=== PATIENT | female | born 1985 | race Caucasian/White ===

== ENCOUNTER → 2017-10-31 15:59 | Outpatient (CLI) | payer MEDICAID, SELFPAY ==
[2017-10-31 20:55] LABS: Chlamydia Trachomatis by PCR Negative (Negative); Neisserai gonorrhoeae by PCR Negative (Negative); Probe Check PASS; Sample Adequacy Control PASS; Specimen Processing Control PASS
[2017-11-03 12:26] LABS: HPV Reflexed? NOT INDICATED
== END ==
PROVIDERS: Visit Provider Obstetrics & Gynecology
DX: Z12.4 Encounter for screening for malignant neoplasm of cervix (principal)
CPT/HCPCS: 87491; 87591; 88175; G0145

== ENCOUNTER → 2017-11-29 16:37 | Outpatient (CLI) | payer MEDICAID, SELFPAY ==
[2017-11-29 20:56] LABS: Chlamydia Trachomatis by PCR Negative (Negative); Neisserai gonorrhoeae by PCR Negative (Negative); Probe Check PASS; Sample Adequacy Control PASS; Specimen Processing Control PASS
== END ==
PROVIDERS: Visit Provider Obstetrics & Gynecology
DX: Z11.3 Encounter for screening for infections with a predominantly sexual mode of transmission (principal)
CPT/HCPCS: 87491; 87591

== ENCOUNTER → 2018-10-01 16:04 | Outpatient (CLI) | payer MEDICAID, SELFPAY ==
[2015-04-23 07:08] VITALS: BMI 46.0
[2018-10-01 18:06] LABS: Chlamydia Trachomatis by PCR Negative (Negative); Neisserai gonorrhoeae by PCR Negative (Negative); Probe Check PASS; Sample Adequacy Control PASS; Specimen Processing Control PASS
== END ==
PROVIDERS: Visit Provider Obstetrics & Gynecology
DX: Z11.3 Encounter for screening for infections with a predominantly sexual mode of transmission (principal)
CPT/HCPCS: 87491; 87591

== ENCOUNTER 2018-10-12 08:59 | Emergency (ER) | payer MEDICAID, SELFPAY ==
[2018-10-12 09:00] VITALS: BP 126/77; PULSE 83; RESP 18; TEMP 36.6; O2SAT 98; BMI 40.7
[2018-10-12 09:10] VITALS: TEMP 36.6
--- NOTE | 2018-10-12 09:32 | ED.VISSUMM ---
- ER Visit Summary Date of Service: 10/12/18 Chief Complaint: Pinkeye left eye History of Present Illness: The patient is a 32 F diagnosed with pinkeye. Off antibiotic drops to her left eye and thinks it is more irritated now. She was glasses no contacts. No visual change. States discharge is clear to yellowish. Crusting over in the morning. Denies any trauma or foreign body. She does not wear contacts. Prior history of pinkeye. Physical Examination: Well-appearing female no acute distress. Vital signs are stable afebrile. HEENT exam left eye is injected and watering. Upper and lower lids are unremarkable and everted show no abnormality. No obvious foreign body or trauma. Pupils are round reactive light. Extra motions are intact. Left eye is mildly injected. There is no orbital periorbital swelling. No preauricular lymphadenopathy. No facial rash or swelling. Exam is consistent with pinkeye. Neck nontender no lymphadenopathy. Lungs clear to auscultation. Heart regular rhythm no murmur. Otherwise exam unremarkable. Test Results: None Emergency Department Course and Treatment: Vision as a viral conjunctivitis. More than likely be sulfa eyedrops are also irritating her eye. Those will be stopped. She was placed on bacitracin ophthalmic ointment. Warm compresses. And follow-up if not improving. Treatment Plan: See above Disposition: Discharge Impression: Viral conjunctivitis Eye irritation secondary to sulfa drops This note was generated with [employer] dictation software. It may contain incorrect words, spelling, and punctuation that were not noted in review of the chart prior to signing ED Disposition - Plan for ED Patient: Referrals: Reggie Orona MD [Primary Care Provider] -
--- NOTE | 2018-10-12 09:35 | ED.DEP ---
ED Disposition - Plan for ED Patient: Disposition: Home or Assisted Living Instructions: CONJUNCTIVITIS, Viral Referrals: Isma Bahena MD [STAFF PHYSICIAN] - 3-5 Days if not improving Additional Instructions: Stop your current eyedrops he may be irritating her eye. Warm compresses several times a day. Eye ointment 3 times a day till gone.
== END 2018-10-12 09:56 | disposition home or self-care (01) ==
PROVIDERS: Emergency Provider Emergency Medicine; Family Provider Family Medicine; PCP Family Medicine
DX: B30.9 Viral conjunctivitis, unspecified (principal); H10.022 Other mucopurulent conjunctivitis, left eye; T37.0X5A Adverse effect of sulfonamides, initial encounter
CPT/HCPCS: 99282

== ENCOUNTER → 2019-04-10 17:08 | Outpatient (CLI) | payer MEDICAID, SELFPAY ==
[2019-04-10 20:06] LABS: Chlamydia Trachomatis by PCR Negative (Negative); Neisserai gonorrhoeae by PCR Negative (Negative); Probe Check PASS; Sample Adequacy Control PASS; Specimen Processing Control PASS
== END ==
PROVIDERS: Visit Provider Obstetrics & Gynecology
DX: Z11.3 Encounter for screening for infections with a predominantly sexual mode of transmission (principal)
CPT/HCPCS: 87491; 87591

== ENCOUNTER → 2019-12-10 | Outpatient (CLI) | payer MEDICAID, SELFPAY ==
[2019-11-27 10:19] VITALS: BMI 40.7
[2019-12-12 03:07] LABS: Chlamydia By Nucleic Acid AMP Negative (Negative)
[2019-12-12 08:27] LABS: Gonococcus By Nucleic Acid AMP Negative (Negative)
== END | disposition home or self-care (01) ==
LOC: LABSPEC 11:51
PROVIDERS: Visit Provider Obstetrics & Gynecology
DX: Z11.3 Encounter for screening for infections with a predominantly sexual mode of transmission (principal)
CPT/HCPCS: 87491; 87591

== ENCOUNTER 2020-05-18 08:27 | Emergency (ER) | payer MEDICAID, SELFPAY ==
[2019-11-27 10:19] VITALS: BMI 40.7
[2020-05-18 08:28] VITALS: BP 176/99; PULSE 87; RESP 14; TEMP 36.4; O2SAT 100; BMI 46.5
--- NOTE | 2020-05-18 08:42 | CT_ITS ---
STUDY: CT BRAIN WITHOUT CONTRAST REASON FOR EXAM: Female, 34 years old. HEADACHE X 1.5 MONTHS, DIZZY,BLURRED VISION RADIATION DOSAGE (If Supplied By Facility): CTDIvol = ( 44.99 ) mGy, DLP = ( 762.36 ) mGycm TECHNIQUE: Transaxial CT imaging of the brain was performed without administration of intravenous contrast material. Individualized dose optimization techniques were used for this CT. COMPARISON: No relevant priors. FINDINGS: Normal soft tissue structures. Normal calvarium. Normal size ventricles and extra-axial spaces for the patient''s age. Normal white matter tracts of the cerebral hemispheres. Normal basal ganglia and thalami. Normal brainstem. Normal cerebellum. There is no intracranial hemorrhage. There are no findings of an acute ischemic infarction. Normal visualized paranasal sinuses. CT/Brain/Head without Contrast IMPRESSION: Normal unenhanced CT scan of the brain. Electronically Signed: Bertram Liang MD at 10:21 EST Tel , Service support ,
--- NOTE | 2020-05-18 08:50 | ED.VIS.GEN ---
History of Present Illness Chief Complaint: Headache Informant: Patient Onset: Days Context: Gradual Onset Timing: Intermittent Current Severity: Moderate Maximum Severity: Moderate Narrative: The patient is a 34-year-old female with no significant medical history that presents to the emergency department with headache. Patient states is been going on for at least the prior month and a half. She states that they are intermittent, but rather consistent. She states she had a daily headache. She describes it as a pressure in her head and feels like throbbing behind her eyes. She states with the headache, she will get nauseated. She denies photophobia. She denies any vomiting. She denies any trauma. She is had no weakness or visual change. Patient is not on any daily medications. She states that she has taken aspirin, ibuprofen, Tylenol with little improvement. Prior similar symptoms: No Recent Illness/Hospitalization: No Past Medical History - Allergies and Home Meds Allergies/Adverse Reactions: Allergies latex Allergy (Verified 05/18/20 08:28) Rash Primary Care Physician: Chantal Campos MD [Primary Care Provider] - Prior records reviewed: Yes Past Medical History: None Surgical History: noncontributory Smoking Status: Never smoker Review of Systems General: Denies: Chills, Fever, Sweats Eyes: Denies: Visual changes - bilaterally, Diplopia ENT: Denies: Rhinorrhea, Sore throat Cardiovascular: Denies: Chest pain, Palpitations Respiratory: Denies: Dyspnea, Cough, Dyspnea on exertion Gastrointestinal: Reports: Vomiting. Denies: Abdominal pain, Nausea, Diarrhea, Melena, Hematochezia Genitourinary: Denies: Dysuria, Hematuria, Frequency Musculoskeletal: Denies: Back pain, Extremity Pain Skin: Denies: Rash, Wounds Neurological: Reports: Headache. Denies: Weakness, Numbness Physical Exam Vital Signs/Narrative: Vital Signs Temp Pulse Resp BP Pulse Ox 05/18/20 08:28 97.5 F L 87 14 176/99 H 100 Inital Vital Signs reviewed: Yes General: Well nourished, Well developed, No Acute Distress Head: Normocephalic, Atraumatic Eyes: Perrl, EOMI ENT: Moist mucous membranes, No rhinorrhea Neck: Supple, Nontender Cardiovascular: Regular rate, Regular rhythm, No murmurs Respiratory: No distress, CTA bilaterally, Chest nontender Abdomen: Soft, Nontender, Nondistended, Normal bowel sounds Back: Nontender, Normal Inspection Extremities: Nontender, No edema Skin: Normal color, No rash Neurological: Alert, Oriented x3, Cranial nerves II-XII grossly intact, Normal Strength, Normal Sensation Psychological: Normal affect, Normal Mood Diagnostic/Tx/Re-eval Clinical Impression(s) from Imaging Studies Brain CT 05/18/20 08:42 IMPRESSION: Normal unenhanced CT scan of the brain. Electronically Signed: Bertram Liang MD at 10:21 EST Tel , Service support , Abnormal Lab Results 05/18/20 05/18/20 05/18/20 08:50 08:50 08:50 WBC 9.7 RBC 4.37 Hgb 13.0 Hct 40.4 MCV 92.4 MCH 29.7 MCHC 32.2 RDW Std Deviation 43.6 RDW Coeff of Marcus 13.0 Plt Count 205 MPV 9.7 Immature Gran % (Auto) 0.400 Neut % (Auto) 65.3 Lymph % (Auto) 28.5 [place] % (Auto) 4.5 Eos % (Auto) 1.0 Baso % (Auto) 0.3 Absolute Neuts (auto) 6.3 Absolute Lymphs (auto) 2.77 Nucleated RBC % 0 Sodium 138 Potassium 3.9 Chloride 106 Carbon Dioxide 27.0 Anion Gap 5 BUN 15 Creatinine 0.81 Estim Creat Clear Calc 80.95 Est GFR (MDRD) Af Amer 104 Est GFR (MDRD) Non-Af 86 BUN/Creatinine Ratio 18.6 Glucose 142 H Calcium 9.0 Total Bilirubin 0.20 AST 11 L ALT 29 Alkaline Phosphatase 82 Total Protein 7.5 Albumin 3.4 Globulin 4.1 Albumin/Globulin Ratio 0.8 L Urine Test Negative - Medical Decision Making The patient presents with persistent headache. She states that there is been throbbing in her eyes. On arrival, she was hypertensive. It was hard to tell if this was the cause of her headache versus just secondary from the pain itself. Patient was given fluids and Zofran. Without intervention, her repeat blood pressure normalized. She is feeling improved. I did obtain noncontrast head CT. This was unremarkable for acute process. Labs were also unremarkable. The patient is not meningitic or encephalopathic. I do feel there are components of tension headache. I do not feel this is migraine. I am going to treat the patient with Fioricet and Zofran. I will have her follow-up with her primary care for reevaluation. Impression 1. Headache ED Disposition - Plan for ED Patient: Instructions: ED Headache, Tension Prescriptions: Acetaminophen/Butalbital/Caffe [Fioricet] 1 tab PO Q4H PRN PRN #20 tab PRN Reason: Headache Prescription Printed Ondansetron [Zofran Odt] 4 mg PO Q8H PRN PRN #10 tab PRN Reason: Nausea Prescription Printed Referrals: Chantal Campos MD [Primary Care Provider] -
[2020-05-18] MEDS: Ondansetron 4 MG/2 ML Vial IV (08:55)
[2020-05-18 08:58] LABS: Internal QC Validated? YES +Cl - CLEAR BKGD
[2020-05-18 08:59] LABS: Absolute Lymphocyte Count 2.77 X10^3/uL (0.83-4.51); Absolute Neutrophil Count 6.3 X10^3/uL (2.0-7.7); Basophil# 0.03 X10^3/uL; Basophil% 0.3 % (0-1); Hematocrit 40.4 % (37-47); Lymphocyte # 2.77 X10^3/ul (4.0); Lymphocyte % 28.5 % (19-41); Mean Corp Hgb Conc 32.2 g/dL (32-36); Mean Corpuscular Hgb 29.7 pg (27.0-32.0); Mean Corpuscular Volume 92.4 fL (81-99); Mean Platelet Vol. 9.7 fl (6.2-12.0); Monocyte# 0.44 X10^3/uL; Monocyte% 4.5 % (0-10); NRBC Flagged by Analyzer 0 % (0-5); Neutrophil # 6.34 X10^3/uL (2.7-7.7); Neutrophil % 65.3 % (47-70); Platelet Count 205 K/mm3 (150-450); Pregnancy, Urine Negative Negative; RBC Distribution Width SD 43.6 fl (35.1-43.9); Red Blood Count 4.37 M/mm3 (4.2-5.4); White Blood Count 9.7 K/mm3 (4.4-11.0)
[2020-05-18 09:14] LABS: ALB/GLOB Ratio 0.8 RATIO (0.9-2.4); AST(SGOT) 11 U/L (15-37); Alanine Aminotransfer ALT/SGPT 29 U/L (13-56); Albumin, Serum 3.4 g/dL (3.2-5.0); Alkaline Phosphatase 82 U/L (45-117); Anion Gap 5 (5-15); BUN 15 mg/dL (7-18); BUN/Creat Ratio 18.6 RATIO (10-20); Chloride 106 mmol/L (98-107); Creatinine, Serum 0.81 mg/dL (0.55-1.02); EST Glomerular Filtration Rate 86 mL/min (>60); Est Glom Filt Rate - Afr Amer 104 mL/min (>60); Estimated Creatinine Clearance 80.95 ml/min; Globulin 4.1 g/dL (2.2-4.2); Glucose 142 mg/dL (74-106); Potassium 3.9 mmol/L (3.5-5.1); Protein, Total 7.5 g/dL (6.4-8.2); Sodium Level 138 mmol/L (136-145)
[2020-05-18 10:20] VITALS: BP 127/70; PULSE 70; O2SAT 98
[2020-05-18 10:57] VITALS: BP 134/69; PULSE 71; RESP 15; O2SAT 98
== END 2020-05-18 10:57 | disposition home or self-care (01) ==
LOC: ED 09:47
PROVIDERS: Emergency Provider Emergency Medicine; PCP Internal Medicine
DX: R51.9 Headache, unspecified (principal)
CPT/HCPCS: 70450; 80053; 81025; 85025; 96374; 99283; J7030; J2405

== ENCOUNTER 2020-07-22 19:30 | Emergency (ER) | payer MEDICAID, SELFPAY ==
[2020-07-22 19:30] VITALS: BP 147/85; PULSE 86; RESP 18; TEMP 36.8; O2SAT 97; BMI 46.8
[2020-07-22 20:17] LABS: Hematocrit 39.2 % (37-47); Hemoglobin 12.7 g/dL (12.0-15.0)
[2020-07-22 20:29] LABS: Internal QC Validated? YES +Cl - CLEAR BKGD; Pregnancy, Serum, hCG Quali. NEGATIVE Negative
--- NOTE | 2020-07-22 21:29 | US_ITS ---
STUDY: ULTRASOUND TRANSVAGINAL CLINICAL: Female, 34 years old. Vaginal bleeding x2.5 weeks and severe cramping pa TECHNIQUE: Transvaginal real-time exam with grayscale image documentation. COMPARISON: Prior pelvic ultrasound of 05/13/2014 FINDINGS: The uterus is midline and anteverted and measures 7.2 x 5.2 x 3.9 cm. Normal endometrial thickness measuring 3 mm. There are no endometrial masses, and there is no fluid in the endometrial cavity. Normal uterine cervix. Normal right ovary, measuring 2.6 x 1.6 x 1.6 cm. There are multiple follicles without a dominant cyst. Normal left ovary, measuring 2.8 x 2.1 x 2.1 cm. There are multiple follicles without a dominant cyst. There is no free fluid in the pelvis. Polycystic ovary disease: No. US/Transvaginal Non- IMPRESSION: Normal pelvis. Electronically Signed: Brandy Funez MD at 22:16 EDT , Service support ,
--- NOTE | 2020-07-22 21:31 | ED.VIS.FEGU ---
HPI HPI - Female History of Present Illness Chief Complaint: Vag Bleeding Pain Pain: Pelvic Pain Onset: Weeks (2.5 weeks) Context: Sudden Onset Timing: Intermittent and Waxes and wanes Quality: Positive for Cramping and Aching Location: - (Above the pubic symphysis/vaginal area) Current Severity: Mild Maximum Severity: Severe Worsened by: - (Nothing specific) Relieved by: - (Nothing) Bleeding Issue: Positive for Vaginal bleeding and Passing clots Onset: Weeks (Onset 2.5 weeks ago) Context: Sudden Onset Timing: Intermittent Current Severity: Heavy Severity: Severe Maximum Severity: Heavy Vaginal Discharge Severity: - (No vaginal discharge) Associated Symptoms Associated Symptoms: Positive for Missed Period; Negative for Dysuria, Frequency, Urgency and Hematuria Test: Negative Sexually: Active and Single Partner Control: No control P: 3 Ab: 0 Narrative Narrative: Patient is a 34-year-old woman who presents with vaginal bleeding started 2.5 weeks ago. She has had intermittent bleeding and pain for 2.5 weeks. Last normal menstrual period was May 25. She did not start bleeding until July 04. She does not recall how many pads she has used today or per day. She states the pads are saturated and she is passing small to large clots. She does report prior history of ovarian cyst. She denies history of endometriosis or ectopic . 5 years ago she was diagnosed with chlamydia. Prior similar symptoms: No Recent Illness/Hospitalization: No PFSH PFSH Medical History (Updated 07/22/20 @ 22:[address] Matthew Vee MD) No significant past medical history Home Medications doxycycline monohydrate 100 mg PO BID #14 capsule 07/22/20 [Rx Last Taken Unknown] methylergonovine [Methergine] 0.2 mg PO .qid 4 Days #15 tab 07/22/20 [Rx Last Taken Unknown] multivit [id number] 1-dha 1 tab PO/SL DAILY 07/22/20 [History Last Taken Unknown] Allergy/AdvReac Type Severity Reaction Status Date / Time latex Allergy Rash Verified 07/22/20 19:33 Social History (Updated 07/22/20 @ 21:[address] Matthew Vee MD) household members: significant other, family and children current occupational exposures/hazards: No history of recent travel: No sexually active: Yes do you think of yourself as: straight/heterosexual current gender identity: female Smoking Status: Never smoker alcohol intake: current alcohol intake frequency: holidays/special occasions only substance use type: does not use ROS ROS ED Constitutional Constitutional ED: Reports systems reviewed and no addt'l complaints, except as documented; Denies chills, fever(s), subjective or sweats Eyes Eyes: Reports systems reviewed and no addt'l complaints, except as documented; Denies blurry vision or change in vision ENT ENT ED: Denies change in voice, dental pain, dry mouth, dysphagia, ear pain, rhinorrhea or sore throat Cardiovascular Cardiovascular: Reports abdominal bloating; Denies abdominal edema, abdominal pain, racing heartbeat or syncope Respiratory/Chest Respiratory/Chest: Denies cough, dyspnea or dyspnea on exertion Gastrointestinal Gastrointestinal: Reports abdominal pain and nausea; Denies constipation, diarrhea or vomiting Genitourinary Genitourinary ED: Denies dysuria, hematuria or urinary frequency Musculoskeletal Musculoskeletal: Denies arthralgias, myalgias or neck pain Integumentary Denies rash Neurologic Neurologic: Denies headache(s) or weakness Psychiatric Psychiatric: Denies anxiety or depression Endocrine Endocrinology: Denies polydipsia or polyuria Hematologic/Lymphatic Hematologic/Lymphatic: Denies easy bleeding or easy bruising EXAM Physical Exam Const Vital Signs: 07/22/20 19:30 07/22/20 22:06 Temperature 98.3 F Temperature Source Temporal Pulse Rate 86 Respiratory Rate 18 16 Blood Pressure 147/85 H Blood Pressure Mean 105 Pulse Ox 97 Oxygen Delivery Method Room Air Positive well nourished, well developed and obese General Appearance ED: well developed and other Mild discomfort Nutritional Appearance: obese HEENT Reports moist mucous membranes Negative for trauma or tenderness Eyes PERRL and EOMs intact bilaterally General Eye ED: Negative for pale conjunctiva or scleral icterus Chest Wall inspection of chest normal Resp normal respiratory effort and clear to auscultation bilaterally Cardio regular rate, regular rhythm, S1 normal heart sound and no murmurs GI normal to inspection, nondistended, normoactive bowel sounds, soft to palpation and non-distended; Negative for non-tender GI Narrative: Suprapubic region Auscultation: hypoactive bowel sounds Palpation: tender; Negative for hepatomegaly or splenomegaly no CVA tenderness, external exam normal, appearance of the vagina normal and no adnexal masses; Negative for appearance of the cervix normal, bimanual exam normal or adnexae non-tender Narrative: Patient is actively bleeding. There is blood noted from the os. The os is elliptical in configuration. Patient has significant tenderness on bimanual exam and unable to palpate uterus or ovaries because of discomfort and body habitus. External Female Exam: normal appearance of the urethra; Negative for abnormal introitus or inguinal lymphadenopathy Speculum Exam - Vagina: vaginal bleeding small/minimal Speculum Exam - Cervix: nulliparous Bimanual Exam - Vag & Uterus: cervical motion tenderness Back/Spine no CVA tenderness Extremity normal to inspection and full ROM Neuro oriented x3 and CN's II-XII intact bilaterally Sensorium / Orientation: alert Psych mental status grossly normal Skin no rashes or lesions noted MDM MDM MDM Narrative Medical decision making narrative: With abnormal menstrual. Vaginal bleeding and cramping pain need to evaluate for and if ectopic versus other causes. Will obtain H&H since she has been bleeding for 2.5 weeks. Patient's ultrasound was unremarkable. Case was discussed with Dr. Macias who is on-call for her public policy analyst. Plan is Methergine 0.2 mg p.o. every 6 hours for a total of 16 doses and because of her tenderness he requested treatment with Rocephin and doxycycline. Urine was sent for GC and chlamydia. Lab Data Labs: Laboratory Results - last 24 hr 07/22/20 07/22/20 07/22/20 20:00 20:00 20:00 Hgb 12.7 Hct 39.2 Serum , Qual NEGATIVE Blood Type O POSITIVE Radiography Diagnostic Testing: Radiology Impression Transvaginal US 07/22/20 21:29 IMPRESSION: Normal pelvis. Electronically Signed: Brandy Funez MD at 22:16 EDT , Service support , Discharge Plan Triage Chief Complaint: Vag Bleeding ED Provider: Matthew Vee Dx/Rx/DC Orders Clinical Impression: Abnormal uterine and vaginal bleeding, unspecified, Menorrhagia with irregular cycle Prescriptions: New doxycycline monohydrate 100 mg capsule 100 mg PO BID Qty: 14 RF: 0 methylergonovine [Methergine] 0.2 mg tablet 0.2 mg PO .qid 4 Days Qty: 15 RF: 0 No Action multivit [id number] 1-dha 1 tab PO/SL DAILY RF: 0 Primary Care Provider: Chantal Campos Referrals: Chantal Campos MD [Primary Care Provider] - Paris Quintero MD [STAFF PHYSICIAN] - 5-7 Days
[2020-07-22 22:06] VITALS: RESP 16
[2020-07-22] MEDS: Doxycycline 100 MG CAPSULE PO (22:48)
--- NOTE | 2020-07-22 22:51 | ED.DCSUM_ITS ---
HPI HPI - Female History of Present Illness Chief Complaint: Vag Bleeding Informant: Patient [facility] Medical History (Updated 07/22/20 @ 22:[address] Matthew Vee MD) No significant past medical history Home Medications doxycycline monohydrate 100 mg PO BID #14 capsule 07/22/20 [Rx Last Taken Unknown] methylergonovine [Methergine] 0.2 mg PO .qid 4 Days #15 tab 07/22/20 [Rx Last Taken Unknown] multivit [id number] 1-dha 1 tab PO/SL DAILY 07/22/20 [History Last Taken Unknown] Allergy/AdvReac Type Severity Reaction Status Date / Time latex Allergy Rash Verified 07/22/20 19:33 Social History (Updated 07/22/20 @ 21:[address] Matthew Vee MD) household members: significant other, family and children current occupational exposures/hazards: No history of recent travel: No sexually active: Yes do you think of yourself as: straight/heterosexual current gender identity: female Smoking Status: Never smoker alcohol intake: current alcohol intake frequency: holidays/special occasions only substance use type: does not use EXAM Physical Exam Const Vital Signs: 07/22/20 19:30 07/22/20 22:06 Temperature 98.3 F Temperature Source Temporal Pulse Rate 86 Respiratory Rate 18 16 Blood Pressure 147/85 H Blood Pressure Mean 105 Pulse Ox 97 Oxygen Delivery Method Room Air [facility] Lab Data Labs: Laboratory Results - last 24 hr 07/22/20 07/22/20 07/22/20 20:00 20:00 20:00 Hgb 12.7 Hct 39.2 Serum , Qual NEGATIVE Blood Type O POSITIVE Radiography Diagnostic Testing: Radiology Impression Transvaginal US 07/22/20 21:29 IMPRESSION: Normal pelvis. Electronically Signed: Brandy Funez MD at 22:16 EDT , Service support , Discharge Plan Triage Chief Complaint: Vag Bleeding ED Provider: Matthew Vee Dx/Rx/DC Orders Clinical Impression: Abnormal uterine and vaginal bleeding, unspecified, Menorrhagia with irregular cycle Prescriptions: New doxycycline monohydrate 100 mg capsule 100 mg PO BID Qty: 14 RF: 0 methylergonovine [Methergine] 0.2 mg tablet 0.2 mg PO .qid 4 Days Qty: 15 RF: 0 No Action multivit [id number] 1-dha 1 tab PO/SL DAILY RF: 0 Primary Care Provider: Chantal Campos Referrals: Chantal Campos MD [Primary Care Provider] - Paris Quintero MD [STAFF PHYSICIAN] - 5-7 Days
[2020-07-22] MEDS: Ceftriaxone 500 MG Vial 250 MG IM (23:12)
[2020-07-22 23:37] VITALS: BP 142/60; PULSE 79; RESP 18; O2SAT 98
[2020-07-23 01:09] LABS: Chlamydia Trachomatis by PCR Negative (Negative); Neisserai gonorrhoeae by PCR Negative (Negative); Probe Check PASS; Sample Adequacy Control PASS; Specimen Processing Control PASS
== END 2020-07-22 23:38 | disposition home or self-care (01) ==
LOC: ED 20:39
PROVIDERS: Emergency Provider Emergency Medicine; PCP Internal Medicine
DX: N92.0 Excessive and frequent menstruation with regular cycle (principal); E66.9 Obesity, unspecified
CPT/HCPCS: 76830; 84703; 85014; 85018; 86900; 86901; 87491; 87591; 96372; 99283; J7030; A4216

== ENCOUNTER → 2020-08-07 | Outpatient (CLI) | payer MEDICAID, SELFPAY ==
[2020-07-22 19:30] VITALS: BMI 46.8
[2020-08-11 18:54] LABS: HPV APTIMA, High Risk Negative (Negative)
== END | disposition home or self-care (01) ==
LOC: LABSPEC 14:06
PROVIDERS: PCP Internal Medicine; Visit Provider Obstetrics & Gynecology
DX: Z12.4 Encounter for screening for malignant neoplasm of cervix (principal)
CPT/HCPCS: 87624; 88175; G0145

== ENCOUNTER 2021-02-12 08:20 | Emergency (ER) | payer MEDICAID, SELFPAY ==
[2021-02-12 08:24] VITALS: BP 128/90; PULSE 83; RESP 17; TEMP 36.1; O2SAT 97; BMI 48.5
--- NOTE | 2021-02-12 09:04 | EX.ED.DYSGE1 ---
HPI History of Present Illness Chief Complaint: Cold Sx Informant: patient Onset/Context/Timing Onset: Days (5) Context: Gradual Onset Timing: Continuous Quality: Malaised/fatigued Location: All over Current Severity: Moderate Worsened by: Nothing Relieved by: Nothing Associated Symptoms Associated Symptoms ED: cough Narrative Narrative: Patient presents with about 5 days of gradual onset cough, runny nose and congestion, myalgias, malaise/fatigue, some diarrhea, and yesterday she started to partially lose her sense of taste although she can smell okay. She denies any dyspnea or fevers. She was not vaccinated against Covid but is concerned she may have it. She was seen on day one of the illness and was started on amoxicillin, she does not know exactly why, there were no tests performed. She states 3 or 4 days into the antibiotic she started developing vaginal discomfort, swelling, redness, itching, with a white discharge. She fears she may have a yeast infection so she just started Monistat. Her urine is normal looking, but it hurts to urinate past the affected area. Denies any abdominal pain, nausea, vomiting. States multiple persons in the household have been ill with URIs similar timeframe, no one has been tested for Covid. [facility] Medical History Alcohol use No significant past medical history Wears glasses Home Medications fluconazole [Diflucan] 150 mg PO DAILY #1 tab 02/12/21 [Rx Last Taken Unknown] Allergy/AdvReac Type Severity Reaction Status Date / Time latex Allergy Rash Verified 02/12/21 08:21 Surgical History (Updated 09/17/20 @ 09:55 by Blanca Francisco) History of hysteroscopy Hx of tonsillectomy Social History household members: significant other, family and children current occupational exposures/hazards: No history of recent travel: No sexually active: Yes Smoking Status: Never smoker alcohol intake: current alcohol intake frequency: holidays/special occasions only substance use type: does not use ROS ROS ED Constitutional Constitutional ED: Reports body ache(s), fatigue, headache(s) and malaise; Denies chills or fever(s) Eyes Eyes: Denies change in vision or diplopia ENT ENT ED: Reports nasal congestion; Denies rhinorrhea or sore throat Cardiovascular Cardiovascular: Denies chest pain or palpitations Respiratory/Chest Respiratory/Chest: Reports cough; Denies dyspnea or dyspnea on exertion Gastrointestinal Gastrointestinal: Reports diarrhea; Denies abdominal pain, nausea or vomiting Genitourinary Genitourinary ED: Denies dysuria or hematuria Musculoskeletal Musculoskeletal: Denies back pain or neck pain Integumentary Denies abscess or rash Neurologic Neurologic: Reports headache(s); Denies paresthesias or weakness Psychiatric Psychiatric: Denies anxiety or suicidal thoughts EXAM Physical Exam Const Vital Signs: 02/12/21 08:24 02/12/21 08:52 Temperature 96.9 F L Temperature Source Temporal Pulse Rate 83 Respiratory Rate 17 Respiratory Effort Normal Non-Labored Respiratory Pattern Normal Blood Pressure 128/90 H Blood Pressure Mean 102 Pulse Ox 97 Oxygen Delivery Method Room Air Positive well nourished, well developed and obese Constitutional Narrative: Well-appearing, no distress General Appearance ED: well developed and NAD Nutritional Appearance: obese HEENT Reports moist mucous membranes normocephalic and atraumatic Eyes PERRL and EOMs intact bilaterally Neck full ROM and supple Resp normal respiratory effort and clear to auscultation bilaterally Cardio regular rate, regular rhythm and no murmurs Rate: Negative for tachycardic GI non-tender and non-distended Auscultation: normoactive bowel sounds Palpation: soft Back/Spine no CVA tenderness General Back: other FROM Extremity normal to inspection and no calf tenderness General Extremety ED: Negative for edema, pulses abnormal or tenderness General Extremity: Negative for edema or pulses abnormal Neuro oriented x3, CN's II-XII intact bilaterally and no sensory deficits noted Sensorium / Orientation: awake and alert Motor Exam: strength 5/5 throughout Skin no rashes or lesions noted and no wounds MDM MDM MDM Narrative Medical decision making narrative: Covid test is positive. Oxygen saturations are excellent. She is clinically and hemodynamically stable. She does not meet any criteria for monoclonal antibody infusion or other treatments at this time, recommend supportive care and checking her pulse ox at home. I also recommend discontinuing the amoxicillin for which there is no indication right now, and she was given a prescription for a Diflucan tablet. Lab Data Attestation: I reviewed the patient's lab results. Discharge Plan Triage Chief Complaint: Cold Sx ED Provider: Chicho Vaughn Dx/Rx/DC Orders Clinical Impression: COVID-19, Vaginal candidiasis Instructions: Coronavirus Disease 2019 (COVID-19): Caring for Yourself or Others, ED [facility] Prescriptions: New fluconazole [Diflucan] 150 mg tablet 150 mg PO DAILY Qty: 1 RF: 0 Discontinued amoxicillin 500 mg Tablet 500 mg PO BID RF: 0 Primary Care Provider: Chantal Campos Referrals: Chantal Campos MD [Primary Care Provider] - As Needed Activity Restrictions/Additional Instructions: Try to get a home portable pulse oximeter and closely watch your oxygen levels periodically. If you stay below 90% for more than a minute or so, and/or you are feeling like your breathing is getting worse, return to the emergency department for further evaluation. Disposition Disposition: Home, Self Care
[2021-02-12 10:18] VITALS: BP 138/74; PULSE 62; RESP 15; O2SAT 96
== END 2021-02-12 10:18 | disposition home or self-care (01) ==
PROVIDERS: Emergency Provider Emergency Medicine; PCP Internal Medicine
DX: U07.1 COVID-19 (principal); B37.3 Candidiasis of vulva and vagina; E66.9 Obesity, unspecified
CPT/HCPCS: 87426; 99282

== ENCOUNTER → 2021-08-03 | Outpatient (CLI) | payer MEDICAID, SELFPAY | END | disposition home or self-care (01) | PROVIDERS: PCP Internal Medicine; Visit Provider Obstetrics & Gynecology | DX: Z11.3 Encounter for screening for infections with a predominantly sexual mode of transmission (principal) ==

== ENCOUNTER 2021-09-17 05:53 | Day surgery (SDC) | payer MEDICAID, SELFPAY ==
[2021-09-14 10:58] LABS: Hematocrit 37.9 % (37-47); Hemoglobin 12.4 g/dL (12.0-15.0); Mean Corp Hgb Conc 32.7 g/dL (32-36); Mean Corpuscular Hgb 29.4 pg (27.0-32.0); Mean Corpuscular Volume 89.8 fL (81-99); Mean Platelet Vol. 9.4 fl (6.2-12.0); Platelet Count 236 K/mm3 (150-450); RBC Distribution Width CV 12.8 % (11.6-14.6); Red Blood Count 4.22 M/mm3 (4.2-5.4); White Blood Count 8.3 K/mm3 (4.4-11.0)
[2021-09-14 11:09] LABS: International Normalized Ratio 0.9; Prothrombin Time (Protime)PT. 11.6 SECONDS (11.7-14.9)
[2021-09-14 11:11] LABS: Partial Thromboplast Time 25.9 Seconds (24.1-36.2)
[2021-09-15 08:59] LABS: AST(SGOT) 8 U/L (15-37); Alanine Aminotransfer ALT/SGPT 26 U/L (13-56); Albumin, Serum 3.4 g/dL (3.2-5.0); Alkaline Phosphatase 81 U/L (45-117); Bilirubin, Direct 0.07 mg/dL (0.00-0.30); Globulin 3.5 g/dL (2.2-4.2); Protein, Total 6.9 g/dL (6.4-8.2)
[2021-09-17] VITALS (7 sets, daily range): BP systolic 109–133; BP diastolic 64–73; PULSE 61–88; RESP 16; TEMP 36.2–36.7; O2SAT 95–98; BMI 46.8
[2021-09-17 06:29] LABS: Internal QC Validated? YES +Cl - CLEAR BKGD; Pregnancy, Urine Negative Negative
[2021-09-17] MEDS: Lactated Ringers 1,000 ML 125 ML IV (06:32)
--- NOTE | 2021-09-17 07:30 | FALS_PTH ---
PATIENT: ERICA ESTEBAN [place] [facility] [place][id number] AGE/SX: 35/F ROOM: RE09/17/[address]: Dr. Paris Quigley MD : 1985 BED: DIS: 09/17/2021 SPEC #: [id number] RECD: 09/17/21 12:44 STATUS: CHEY REQ #: [id number] NATASHA: 09/17/21 07:[address]: Paris Quintero DEPT: SURGICAL PATHOLOGY RECD BY: Hoda Calloway ENTERED: 09/17/21 12:54 SP TYPE: FALL TUBES OTHR DR: Dr. Chantal Campos MD Tissues: Fallopian tube Procedures: Surgery Specimen Level II HEADER OPERATION: Laparoscopic salpingectomy PRE-OP DIAGNOSIS: Sterilization TISSUE SUBMITTED: Bilateral fallopian tubes MICROSCOPIC DIAGNOSIS Bilateral fallopian tubes, salpingectomy: Bilateral fallopian tubes, no pathologic diagnosis. Paratubal cysts. SJ:[email or web address] 09/20/2021 MICROSCOPIC DESCRIPTION Slides are reviewed. GROSS DESCRIPTION Received in fixative is one container labeled with the patient's name and designated bilateral fallopian tubes. The specimen consists of bilateral fallopian tubes including fimbrial ends measuring 6 cm in length and 0.6 cm in diameter and 5 cm in length and 0.5 cm in diameter. One of the fallopian tube shows three paratubal cysts measuring 0.5 to 0.7 cm in greatest dimension. The fallopian tubes are not identified as right or left. Sections reveal unremarkable cut surfaces. Mental Health Coordinator sections are submitted in two cassettes as follows: 1 - one fallopian tube, 2 - second fallopian tube and paratubal cysts. / NIKKI:divya 09/17/2021 TC:4 CPT: 37448 x2
--- NOTE | 2021-09-17 08:07 | PCM.HP.BLA ---
History and Physical Date of Admission: 09/17/21 Surgical History and Physical Date: 09/14/2021 Name: ERICA ESTEBAN Age: 35 Date of : 1985 Erica Esteban, a 35 year old female 3 0 2 0 3, presents for Laparoscopic bilateral salpingectomy on September 17, 2021 at [facility]. MEDICATIONS HISTORY: Patient is also takin. No Meds ALLERGIES: NKDA, Latex and Cutaneous hypersensitivity (allergic skin response) Infections - Chlamydia, 2012 and 2014 Illnesses - none Accidents - no injuries of consequence Hospitalizations - Childbirth Review of Systems: GENERAL - Denies fever, or chills SKIN - Denies skin changes EYES - Denies visual changes EARS - Denies difficulty hearing NOSE - Denies nasal congestion or bleeding MOUTH - Denies sore throat or difficulty swallowing NECK - Denies pain or swelling RESPIRATORY - Denies shortness of breath or wheezing CARDIOVASCULAR - Denies palpitations or chest pain GASTROINTESTINAL - Denies nausea, vomiting, diarrhea, constipation GENITOURINARY - Denies dysuria, frequency of urination, incontinence of urine MUSCULOSKELETAL - Denies joint or muscle pain NEUROLOGICAL - Denies localized numbness or weakness PSYCHIATRIC - Denies depression or anxiety ENDOCRINE - Denies heat or cold intolerance, weight loss or gain HEMATO-IMMUNOLOGIC - Denies excesive bleeding with cuts SOCIAL HISTORY: Alcohol Use - denies drinking Smoking - prior social smoker a long time ago Diet - no special diet Lifestyle - moderate stress lifestyle Exercise - minimal Seat Belt Use - always Employer - [employer] 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 Maternal Grandmother: Ovarian cancer. Maternal Grandfather: DM II and Heart Disease. MENSTRUAL HISTORY: LMP Known?- ApproximateAmount/Duration - 7 days, Regularity - Regular, Frequency - monthly days, LMP - 07/26/21, Age Onset Menarche - 10 PAST PREGNANCIES: Total Pregnancies - 5; Full Term Pregnancies - 3; Premature - 0; Abortions, Induced - 1; Abortions, Spontaneous - 1; Ectopics - 0; Multiple Births - 0; Living Children - 3 SURGICAL HISTORY: 1. 05/13/2014 suction D and C ; Blanca Palafox M.D. - 2. 03/27/1997 T and A ; - 3. 03/18/2014 EAB ; - 8 wk twins PHYSICAL EXAM BP- 124/86 R forearm, sitting, regular cuff Weight- 272.65142 lbs Height- 63.00 inch BMI:[id number] CONSTITUTIONAL - NAD, well nourished, and well developed SKIN - No rash, lesions, or ulcers HEENT - Normocephalic, PERRLA, EOMI LUNGS - CTA x2 without wheezes, crackles or rales CARDIAC - normal heart sounds and physiologic rhythm ABDOMEN - Without hepatosplenomegaly, distention, masses, rebound, or guarding; normal bowel sounds; no hernias EXTREMITIES - No edema or calf tenderness NEUROLOGICAL - normal gait, normal balance, normal motor PSYCHIATRIC - A and O to time, place, person, mood and affect External Genitial Vagina - non-tender without lesions Urethra/Urethral Meatus - non-tender Bladder - non-tender Vagina - vaginal adams are pink and moist without loss of rugae and no evidence of atropy Cervix - without cervical motion tenderness and has normal size and features without evident lesions Uterus - 5-6 cm in size, mobile and nontender Adnexa - clear without massess or tenderness Pap - GC/Chlamydia cultures done ASSESSMENT/PLAN: 1. Encounter for sterilization Plan for laparoscopic bilateral salpingectomy Procedural r/b/i/a reviewed Preop instructions reviewed and anticipated hospital course, recovery discussed Preop labs today Consents signed Assessment & Plan Assessment/Plan (1) Encounter for sterilization: PLAN: Plan No interval change in health. Patient and family given opportunity to ask questions and questions answered to their satisfaction. Proceed as planned with laparoscopic bilateral salpingectomy.
[2021-09-17] MEDS: Bupivacaine Mpf 0.5% 30 ML VIAL (09:15)
--- NOTE | 2021-09-17 09:15 | DCINST_ITS ---
Discharge Instructions Diet Discharge Diet: No restrictions Activity Discharge Activity: Return to Normal Activity and May Shower May resume sexual activity in: - (2-4 weeks) Lifting Restrictions: 10 lb Dressing / Incision Call your doctor if your incision/area has: Continuous Slow Oozing, Sudden Increased Bleeding, Increased Pain/ Swelling, Increased Redness, Foul Smelling Discharge and Swelling at the incision site Call your doctor if you observe: Fever of 101 or Higher, Inability to urinate, Inability to have a bowel movement, Shortness of breath, Chest pain, Calf discomfort and Uncontrolled pain Remove Dressing in: 2 days Cleanse incision/area with: Soap & Water Follow Up Care Please Follow Up With: Paris Quintero MD When: 2-4 weeks Test Results: Test results from this visit will be discussed in further detail at your follow- up appointment, if applicable. Discharge Plan Admission Primary Reason for Your Visit: Tube removal (Bilateral salpingectomy) Attending Provider: Paris Quintero Primary Care Provider: Chantal Campos Discharge Orders/Prescriptions Prescriptions: No Action NK Referrals / Follow Up: Chantal Campos MD [Primary Care Provider] - Disposition Disposition (needs filled in before D/C Order can be placed): Home, Self Care
--- NOTE | 2021-09-17 09:19 | OP.PCM_ITS ---
Report of Operation Date of Procedure: 09/17/21 Pre-Operative Diagnosis: 1. Multiparity 2. Sterilization request Post-Operative Diagnosis: 1. Multiparity 2. Sterilization request Surgery/Procedure Performed:: Laparoscopic bilateral salpingectomy Surgeon: Paris Quintero orthodontic technician assistant: Lizbet Douglas Type of Anesthesia: General and Local Anesthesiologist: Brent Zheng Specimen's removed: bilateral tubes Drains: Urine output 50cc Estimated Blood Loss (mL): 10 Fluids Replaced: 800 Description of Procedure: Indications: 35-year-old para 3 presents for scheduled laparoscopic bilateral salpingectomy for sterilization. Procedure risks, benefits, indications and reversible alternatives were reviewed. Patient acknowledged that this procedure is permanent and irreversible. She desired to proceed as planned. Informed consent was obtained. Procedure: Patient was brought to the operating room performed. She is placed in the dorsal supine position and induced under general anesthesia and intubated. She was then repositioned to dorsolithotomy and examination under anesthesia was performed. 1 arm was tucked at her side. The abdomen and perineum were prepped and draped in sterile fashion with straight catheterization of the bladder performed. Patient was placed into high lithotomy and speculum placed vaginally. The cervix was grasped the anterior cervical lip using a single-tooth tenaculum the uterus sounded to 9 cm. A ZUMI uterine manipulator was placed and secured and the tenaculum was removed from the cervix. The patient was then placed into low lithotomy attention turned to the abdomen. The half percent Marcaine was placed at the inferior umbilicus. An incision was made at the site and Veress needle was introduced with successful hanging drop test and no aspirate however abdominal entry pressures were high. The Veress needle was removed following second attempt at placement with similar readings. I proceeded with direct laparoscopic port entry using a 5 mm port confirming entry into the abdominal cavity however the port was shallow for the abdominal wall depth thus this was switched out later using as a long port. Half percent Marcaine was also injected in the right and left lower quadrants and incisions made and 5 mm port introduced at the site as well. The abdomen and pelvis were inspected and normal in appearance. The left tubal fimbria was identified. Using the Enseal device the mesosalpinx was serially clamped, electrocoagulated and cut to the level of the uterine cornua to perform salpingectomy. The tube was removed through a 5 mm port. In similar fashion the right tubal fimbria was identified and right salpingectomy also performed using the Enseal device. There was a right tubal cyst however preventing removal of the right tube through the 5 mm port. The port was subsequently removed and Mica clamp introduced abdominally after widening the incision to grasped the tube with successful removal. The abdomen was desufflated and ports were removed and the patient was given several deep breaths for further desufflation. The incisions were closed using 4-0 Monocryl by the CONTACT LENS BLOCKER AND CUTTER under my supervision. Steri-Strips and OpSite dressings were placed over the incisional sites. The procedure was complete. The patient was awakened, extubated and transferred to the recovery room without complication. Sponge counts were correct x2. Complications None
[2021-09-17] MEDS: HYDROcodone Bitartrate/Apap 5/325 Tablet PO (11:17)
== END 2021-09-17 12:06 | disposition home or self-care (01) ==
LOC: SDC 05:54 → AC 05:55
PROVIDERS: Anesthesiology; PCP Internal Medicine; Referring Provider Obstetrics & Gynecology; Visit Provider Obstetrics & Gynecology
PROC: (CPT 58661; principal; 2021-09-17 07:15)
DX: Z30.2 Encounter for sterilization (principal); N83.8 Other noninflammatory disorders of ovary, fallopian tube and broad ligament
CPT/HCPCS: 58661; 36415; 80076; 81025; 85027; 85610; 85730; 86850; 86900; 86901; 88302; J7120; C1760; J2405